=== PATIENT | male | born 1970 | race Caucasian/White ===

== ENCOUNTER 2017-12-29 08:33 | Outpatient (CLI) | payer OTHER ==
[2017-12-29 15:54] LABS: ALBUMIN/GLOBULIN RATIO 1.5 (1.0-2.2); ALKALINE PHOSPHATASE 56 IU/L (42-121); ALT ALANINE AMINOTRANSFERASE 49 IU/L (10-60); AST ASPARTATE AMINOTRANSFERASE 27 IU/L (10-42); BILIRUBIN,TOTAL 0.7 mg/dL (0.2-1.0); BUN - BLOOD UREA NITROGEN 16 mg/dL (6-20); CALCIUM 8.9 mg/dL (8.5-10.3); CARBON DIOXIDE - CO2 26 mmol/L (21-32); CHLORIDE 105 mmol/L (101-111); CHOL/HDL RATIO 5.6 (<5.0); CHOLESTEROL 274 mg/dL; CREATININE 1.1 mg/dL (0.6-1.2); GFR - MDRD 71 (>89); GLUCOSE 117 mg/dL (70-100); HDL CHOLESTEROL 49 mg/dL; LDL CHOLESTEROL,CALCULATED 191 mg/dL; LDL/HDL RATIO 3.9 (<3.6); SODIUM 138 mmol/L (135-145); TOTAL PROTEIN 6.7 g/dL (6.7-8.2); VLDL CHOLESTEROL 34 mg/dL
[2017-12-29 16:06] LABS: BASOPHILS % (AUTO) 0.6 %; EOSINOPHILS # (AUTO) 0.1 10^3/uL (0.0-0.7); EOSINOPHILS % (AUTO) 1.9 %; HGB - HEMOGLOBIN 14.5 g/dL (14.0-18.0); LYMPHOCYTES # (AUTO) 1.9 10^3/uL (1.5-3.5); LYMPHOCYTES % (AUTO) 39.6 %; MEAN CORPUSCULAR HEMOGLOBIN 29.6 pg (27.0-31.0); MEAN CORPUSCULAR HGB CONC 32.8 g/dL (32.0-36.0); MEAN CORPUSCULAR VOLUME 90.3 fL (80.0-94.0); MEAN PLATELET VOLUME 8.2 fL (7.4-11.4); MONOCYTES # (AUTO) 0.5 10^3/uL (0.0-1.0); MONOCYTES % (AUTO) 10.1 %; NEUTROPHILS # (AUTO) 2.3 10^3/uL (1.5-6.6); NEUTROPHILS % (AUTO) 47.8 %; PLT - PLATELET COUNT 210 10^3/uL (130-450); RED BLOOD COUNT 4.91 10^6/uL (4.70-6.10); RED CELL DISTRIBUTION WIDTH 13.8 % (12.0-15.0); WHITE BLOOD COUNT 4.8 x10^3/uL (4.8-10.8)
== END 2017-12-29 08:34 | disposition home or self-care (01) ==
LOC: LAB.R 08:33
PROVIDERS: ATTEND Physician Assistant Medical
DX: Z00.00 Encounter for general adult medical examination without abnormal findings (principal)
CPT/HCPCS: 80053; 80061; 83721; 84443; 85025

== ENCOUNTER 2018-09-11 09:18 | Outpatient (CLI) | payer OTHER ==
[2018-09-11 15:47] LABS: CHOLESTEROL 301 mg/dL; GLUCOSE 128 mg/dL (70-100); HDL CHOLESTEROL 50 mg/dL; LDL CHOLESTEROL,CALCULATED 188 mg/dL; LDL/HDL RATIO 3.8 (<3.6); VLDL CHOLESTEROL 63 mg/dL
[2018-09-11 16:01] LABS: HB2 TOTAL 16.7 g/dL; HEMOGLOBIN A1C 0.61 g/dL; HEMOGLOBIN A1C % 5.5 % (4.6-6.2)
== END 2018-09-11 23:59 | disposition home or self-care (01) ==
LOC: LAB.R 09:18
PROVIDERS: ATTEND Physician Assistant Medical
DX: R73.01 Impaired fasting glucose (principal); E78.5 Hyperlipidemia, unspecified
CPT/HCPCS: 80061; 82947; 83036; 83721

== ENCOUNTER 2019-12-30 15:37 | Emergency (ER) | payer BC, OTHER ==
[2019-12-30] MEDS ORDERED: BUFFERED LIDOCAINE 10 ML SYRINGE SUBQ STA (16:06)
--- NOTE | 2019-12-30 16:08 | ED Physician Documentation ---
PD HPI SKIN - Stated complaint Stated Complaint: LUMP ON LOWER BGACK, RED/SWOLLEN - Chief complaint Chief Complaint: Wound - History obtained from History obtained from: Patient PD PAST MEDICAL HISTORY - Past Medical History Cardiovascular: High cholesterol Other Past Medical History: Ruptured L5 - Past Surgical History Past Surgical History: Yes - Allergies Allergies/Adverse Reactions: Allergies Allergy/AdvReac Type Severity Reaction Status Date / Time No Known Drug Allergies Allergy Verified 12/30/19 15:44 - Social History Does the pt smoke?: No Smoking Status: Never smoker Does the pt drink ETOH?: Yes Substance Use and Type: Marijuana - Immunizations Immunizations are current?: No Results - Vitals Vitals: Vital Signs - 24 hr 12/30/19 15:44 Temperature 37.3 C Heart Rate 83 Respiratory 14 Rate Blood Pressure 168/83 H O2 Saturation 98 Oxygen O2 Source Room air
[2019-12-30] MEDS ORDERED: AMOX/CLAV 875 MG/125 MG TABLET PO STA (16:10)
--- NOTE | 2019-12-30 16:11 | ED Physician Documentation ---
PD HPI WOUND RECHECK - Stated complaint Stated Complaint: LUMP ON LOWER BGACK, RED/SWOLLEN - Chief complaint Chief Complaint: Wound - Histroy obtained from History obtained from: Patient (He is always had a small lump on the right upper buttock. Over the last 5 days it is become swollen and painful. No fevers.) Review of Systems Constitutional: reports: Reviewed and negative Cardiac: reports: Reviewed and negative Respiratory: reports: Reviewed and negative PD PAST MEDICAL HISTORY - Past Medical History Cardiovascular: High cholesterol Other Past Medical History: Ruptured L5 - Past Surgical History Past Surgical History: Yes - Present Medications Home Medications: Ambulatory Orders Medication Instructions Recorded Confirmed Amox/Clav 875/125 [Augmentin] 1 each PO Q12H #20 tablet 12/30/19 - Allergies Allergies/Adverse Reactions: Allergies Allergy/AdvReac Type Severity Reaction Status Date / Time No Known Drug Allergies Allergy Verified 12/30/19 15:44 - Social History Does the pt smoke?: No Smoking Status: Never smoker Does the pt drink ETOH?: Yes Substance Use and Type: Marijuana - Immunizations Immunizations are current?: No PD ED PE NORMAL - Vitals Vital signs reviewed: Yes - General General: Alert and oriented X 3, No acute distress - Extremities Extremities: Other (There is a cystic lesion with infection, not sure if it is a pilonidal cyst or sebaceous cyst, its not in the midline its on the right upper buttock about 2 cm lateral to midline. It is quite large with overlying cellulitis.) - Neuro Neuro: Alert and oriented X 3, Normal speech Results - Vitals Vitals: Vital Signs - 24 hr 12/30/19 15:44 Temperature 37.3 C Heart Rate 83 Respiratory 14 Rate Blood Pressure 168/83 H O2 Saturation 98 Oxygen O2 Source Room air Procedures - Abscess I&D (location) buttock Preparation: Betadine, Alcohol, Lidocaine 1% Incision: Incised with scalpel, Purulent drainage, Loculations broken, Packed (with 1/4") Other: Pt tolerated well, Dressing applied Departure - Departure Disposition: 01 Home, Self Care Clinical Impression: Abscess Condition: Good Record reviewed to determine appropriate education?: Yes Instructions: ED Abscess IandD Prescriptions: Amox/Clav 875/125 [Augmentin] 1 each PO Q12H #20 tablet Comments: You have what appears to be a sebaceous cyst that was infected on your buttock. This should improve quickly now that we have incised and drained it. Remove the packing in 2 days. If there is a persistent lump there follow-up with your doctor for surgical referral for definitive excision. Return if worse.
[2019-12-30] MEDS ORDERED: oxyCODONE 5 MG TABLET PO STA (16:43)
[2019-12-30 17:00] VITALS: BP 176/93
== END 2019-12-30 17:00 | disposition home or self-care (01) ==
LOC: ED 15:37
DX: L02.31 Cutaneous abscess of buttock (principal); L03.317 Cellulitis of buttock
CPT/HCPCS: 10061; 99283; A9270